=== PATIENT | female | born 1950 | race American Indian/Alaskan Native ===

== ENCOUNTER 2017-07-14 05:56 | Emergency (ER) | payer OTHER, MEDICARE ==
[2017-07-14 05:56] VITALS: BMI 37.5
--- NOTE | 2017-07-14 06:21 | C.PDOC ---
History Of Present Illness The patient, whose PMHx includes Metastatic Stage 4 Ovarian Cancer, presents to the ED with family members for evaluation of altered mental status. Patient was found unresponsive 2 days ago by her family. Patient had a lot of visitors and did not go to bed until around 0400. Family denies fever, chills, or use of any pain medication on patients behalf. History obtained by family at bedside. Additional history limited secondary to patients clinical condition. Time Seen by Provider: 07/14/17 06:21 Chief Complaint (Nursing): Altered Mental Status History Per: Family History/Exam Limitations: Clinical Condition Onset/Duration Of Symptoms: Hrs Onset Of Symptoms: Cannot Confirm Onset Current Symptoms Are (Timing): Still Present Exacerbating Factor(s): Unknown Additional History Per: Patient Past Medical History Reviewed: Historical Data, Nursing Documentation, Vital Signs Vital Signs: Last Vital Signs Temp 98 F 07/14/17 06:47 Pulse 95 H 07/14/17 06:47 Resp 14 07/14/17 06:47 BP 105/66 07/14/17 06:47 Pulse Ox 100 07/14/17 06:47 - Medical History PMH: No Chronic Diseases Denies: Depression Surgical History: No Surg Hx Family History: States: Unknown Family Hx - Social History Hx Alcohol Use: No Hx Substance Use: No - Immunization History Hx Tetanus Toxoid Vaccination: No Hx Influenza Vaccination: No Hx Pneumococcal Vaccination: No Review Of Systems Review Of Systems: ROS cannot be obtained secondary to pt's inabilty to answer questions. Physical Exam - Physical Exam Appears: Non-toxic, No Acute Distress, Other (lethargic ) Skin: Warm, Dry Head: Normacephalic Eye(s): bilateral: Normal Inspection Oral Mucosa: Moist Neck: Supple Chest: Symmetrical, No Deformity, No Tenderness Cardiovascular: Rhythm Regular, No Murmur Respiratory: No Rales, No Rhonchi, No Wheezing Gastrointestinal/Abdominal: Soft, No Tenderness Extremity: Normal ROM, Capillary Refill (less than 2 seconds ) Gait: Unable To Assess ED Course And Treatment ECG Rhythm: Sinus Rhythm Interpretation Of ECG: Sinus rhythm at rate 97 bpm. Left axis deviation. Nonspecific ST changes. O2 Sat by Pulse Oximetry: 100 (on RA) Pulse Ox Interpretation: Normal Disposition Counseled Patient/Family Regarding: Studies Performed, Diagnosis - Disposition Disposition Time: 06:21 Condition: CRITICAL Forms: [facility] ([place]ian) - Clinical Impression Clinical Impression: Change in mental status - Scribe Statement The provider has reviewed the documentation as recorded by the Scribe (Daria Miramontes) Provider Attestation: All medical record entries made by the Scribe were at my direction and personally dictated by me. I have reviewed the chart and agree that the record accurately reflects my personal performance of the history, physical exam, medical decision making, and the department course for this patient. I have also personally directed, reviewed, and agree with the discharge instructions and disposition. Physician Patient Turnover Patient Signed Over To: Kerry Odom
[2017-07-14] MEDS ORDERED: Sodium Chloride 0.9% 1,000 ML IV ONE ×3 (06:22→13:19)
[2017-07-14 07:36] LABS: BASO % 0.5 % (0.0-2.0); EOS % 0.5 % (0.0-4.0); HEMOGLOBIN 7.2 g/dL (11.0-16.0); LYMPH # 0.6 K/uL (1.0-4.3); LYMPH % 5.7 % (20.0-40.0); MEAN CELL VOLUME 81.2 fL (81.0-99.0); MEAN CORPUSCULAR HEMOGLOBIN 28.9 pg (27.0-31.0); MEAN CORPUSCULAR HGB CONC 35.6 g/dL (33.0-37.0); MEAN PLATELET VOLUME 6.5 fL (7.2-11.7); MONO # 0.6 K/uL (0.0-0.8); MONO % 5.9 % (0.0-10.0); NEUT # 8.7 K/uL (1.8-7.0); NEUT % 87.4 % (50.0-75.0); NRBC % 0.1 % (0.0-2.0); PLATELET COUNT 355 K/uL (130-400); RBC 2.48 Mil/uL (3.80-5.20); RED CELL DISTRIBUTION WIDTH 16.5 % (11.5-14.5); WHITE BLOOD COUNT 9.9 K/uL (4.8-10.8)
[2017-07-14 08:01] LABS: ABG ALLEN TEST POS; ARTERIAL BLOOD GAS HCO3 34.7 mmol/L (21-28); ARTERIAL BLOOD GAS O2 SAT 100.4 % (95-98); ARTERIAL BLOOD GAS PCO2 56 mm/Hg (35-45); ARTERIAL BLOOD GAS PH 7.45 (7.35-7.45); ARTERIAL BLOOD GAS PO2 186 mm/Hg (80-100); ARTERIAL BLOOD GAS TCO2 40.6 mmol/L (22-28)
[2017-07-14 08:12] LABS: ANISOCYTOSIS SLIGHT; HYPOCHROMIC MODERATE; LYMPHOCYTE 4 % (20-40); MICROCYTOSIS SLIGHT; MONOCYTE 9 % (0-10); NEUTROPHIL 87 % (50-75); NUCLEATED RED BLOOD CELL 1 % (0-0); PLATELET ESTIMATE NORMAL (NORMAL); POIKILOCYTOSIS SLIGHT; TOTAL CELLS COUNTED 100
[2017-07-14 08:13] LABS: TARGET CELLS SLIGHT
--- NOTE | 2017-07-14 08:18 | RAD ---
PROCEDURE: CHEST RADIOGRAPH, 1 VIEW HISTORY: SOB COMPARISON: None available. FINDINGS: LUNGS: Clear. Shallow lung volumes PLEURA: No pneumothorax or pleural fluid seen. CARDIOVASCULAR: Normal. OSSEOUS STRUCTURES: No significant abnormalities. VISUALIZED UPPER ABDOMEN: Normal. OTHER FINDINGS: None. IMPRESSION: No active disease.
[2017-07-14] MEDS ORDERED: Sodium Chloride 0.9% 1,000 ML ONE (08:25)
[2017-07-14 08:27] LABS: INR 1.1
--- NOTE | 2017-07-14 08:29 | CT ---
PROCEDURE: CT HEAD WITHOUT CONTRAST. HISTORY: R/O Bleed COMPARISON: None available. TECHNIQUE: Axial computed tomography images were obtained through the head/brain without intravenous contrast. Radiation dose: Total exam DLP = 844 mGy-cm. This CT exam was performed using one or more of the following dose reduction techniques: Automated exposure control, adjustment of the mA and/or kV according to patient size, and/or use of iterative reconstruction technique. FINDINGS: HEMORRHAGE: No intracranial hemorrhage. BRAIN: No mass effect or edema. No atrophy or chronic microvascular ischemic changes. VENTRICLES: Unremarkable. No hydrocephalus. CALVARIUM: Unremarkable. PARANASAL SINUSES: Unremarkable as visualized. No significant inflammatory changes. MASTOID AIR CELLS: Unremarkable as visualized. No inflammatory changes. OTHER FINDINGS: Incidental bilateral basal ganglionic calcifications Bilateral supraclinoid internal carotid artery atherosclerotic calcifications IMPRESSION: No intracranial hemorrhage or mass effect. Bilateral supraclinoid internal carotid artery atherosclerotic ossifications
[2017-07-14 09:32] LABS: URINE BILIRUBIN NEGATIVE (NEGATIVE); URINE BLOOD 2+ (NEGATIVE); URINE CLARITY Turbid (Clear); URINE COLOR Red (YELLOW); URINE GLUCOSE (UA) NORMAL (Normal); URINE LEUKOCYTE ESTERASE 1+ Leu/uL (Negative); URINE NITRATE NEGATIVE (NEGATIVE); URINE PROTEIN 2+ mg/dL (NEGATIVE); URINE UROBILINOGEN NORMAL mg/dL (0.2-1.0); WBC CLUMPS MANY /hpf
[2017-07-14] MEDS ORDERED: cefTRIAXone IV 1 gm in Dextros 50 ML IV STA (09:42)
[2017-07-14 09:49] LABS: ALB/GLOB RATIO 0.9 (1.0-2.1); ALBUMIN 3.3 g/dL (3.5-5.0); CALCIUM 8.6 mg/dl (8.6-10.4)
[2017-07-14] MEDS ORDERED: cefTRIAXone IV 1 gm in Dextros 50 ML IVPB ONE (09:51)
[2017-07-14 14:16] LABS: VENOUS BLOOD GAS BASE EXCESS 6.1 mmol/L (0.0-2.0); VENOUS BLOOD GAS PCO2 49 mmHg (40-60); VENOUS BLOOD GAS PO2 147 mm/Hg (30-55); VENOUS BLOOD PH 7.42 (7.32-7.43)
[2017-07-14 15:00] VITALS: O2SAT 100
[2017-07-14 18:09] VITALS: BP 113/68; PULSE 91; RESP 20; TEMP 99.9
--- NOTE | 2017-07-15 23:21 | CARD ---
APPROVED REPORT EKG Measurement Heart [id number] <Conclusion> Normal sinus rhythm Left axis deviation Anteroseptal infarct, age undetermined Abnormal ECG
== END 2017-07-14 18:57 | disposition home or self-care (01) ==
LOC: C.ER 05:56 → UNDOADMOB 13:52 → C.9E 13:52 → C.3T 14:24 → C.9E 14:24 → C.ER 18:57
DX: R41.82 Altered mental status, unspecified (principal); E86.0 Dehydration; N39.0 Urinary tract infection, site not specified; C56.9 Malignant neoplasm of unspecified ovary
CPT/HCPCS: 70450; 71045; 80053; 81001; 82803; 82948; 85025; 85610; 85730; 87040; 87086; 87181; 87804; 93005; 94660; 96361; 96365; 96375; 99285; J0696; J2060; J7040